=== PATIENT | female | born 1980 | race Caucasian/White ===

== ENCOUNTER 2017-12-19 14:02 | Emergency (ER) | payer SELFPAY ==
[~2017-12-19] VITALS: Ht 157.5 cm; Wt 54.4 kg
[2017-12-19] MEDS ORDERED: KETOROLAC 60 MG/2 ML VIAL. IM ONE (14:45)
[2017-12-19] MEDS ORDERED: DIPHTH,PERTUSS(ACELL),TET TOX 0.5 ML DISP.SYRIN. VAX IM ONE (15:00)
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
--- NOTE | 2017-12-19 15:17 | RAD ---
EXAM: Bilateral wrists, 3 views. HISTORY: Pain. COMPARISON: None. FINDINGS: Frontal, lateral and oblique views of both breasts are obtained. There is no fracture, dislocation or subluxation. There is suggestion of negative ulnar variance, possibly projectional. IMPRESSION: No acute osseous finding. Electronically signed by: Keerthi Salmeron MD (12/19/2017 3:13 PM) [place] [id number]
[2017-12-19] MEDS ORDERED: HYDR-971 PO (15:53)
[2017-12-19] MEDS ORDERED: NAPR-683 PO (15:53)
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
[2017-12-19 16:05] VITALS: BP 136/93
== END 2017-12-19 16:05 | disposition home or self-care (01) ==
LOC: ER 14:02
DX: S16.1XXA Strain of muscle, fascia and tendon at neck level, initial encounter (principal); S60.212A Contusion of left wrist, initial encounter; S60.211A Contusion of right wrist, initial encounter; R51 Headache; M50.821 Other cervical disc disorders at C4-C5 level; M50.822 Other cervical disc disorders at C5-C6 level; M50.823 Other cervical disc disorders at C6-C7 level; M54.9 Dorsalgia, unspecified; I10 Essential (primary) hypertension; Z90.49 Acquired absence of other specified parts of digestive tract; V49.9XXA Car occupant (driver) (passenger) injured in unspecified traffic accident, initial encounter; Y93.I9 Activity, other involving external motion; Y92.488 Other paved roadways as the place of occurrence of the external cause; Y99.8 Other external cause status
CPT/HCPCS: 70450; 72125; 72131; 73110; 90471; 90715; 96372; 99284; J1885